=== PATIENT | male | born 1935 | race Caucasian/White ===

== ENCOUNTER → 2016-09-26 | Day surgery (SDC) | payer MEDICARE, OTHER ==
[~2016-09-26] VITALS: Ht 175.3 cm; Wt 101.9 kg
[~2016-09-26] MED LIST: ALEVE220 M1; CALCIUM CARBONATE; COLON HERBAL C1 EACH PO; COREG 3.1253.125 MG PO; CPAP INH; EDTA PO; FLAGYL500 MG PO; FLEXERIL10 MG PO; FLOMAX0.4 MG PO; FLORASTOR250 MG PO; GABAPENTIN300 MG PO; HEMP SL; HEMP TOP; KEFLEX250 MG PO; LASIX20 M1 PO; MULTI VITAMIN1 EACH PO; NORCO 5-325 MG1 TAB PO; OXYGEN M-15 INH; OXYGEN NOSE; PERCOCET 5-3251 EACH; PERCOCET 5-3251 EACH PO; PRAVACHOL20 MG PO; SHARK CARTILAG500 MG PO; TRAMADOL HCL50 MG; TYLENOL325 MG PO; VANCOCIN HCL125 MG PO; XARELTO20 MG PO; ZESTRIL2.5 MG PO; [UNRECOGNIZED DRUG - OTHER] PO
--- NOTE | ~2016-09-26 | OR ---
PATIENT'S NAME: CELESTINE RICKS [facility] AGE: 80 Y [address] ROOM: [place] [address] LOCATION: [facility] ADMIT DATE: 09/26/2016 OR/Procedure Report DISCHARGE DATE: FAMILY PHYSICIAN: Cedrick Mosley MD ATTENDING PHYSICIAN: Eren Victor SURGEON: Eren Victor MD DECKHAND CRAB BOAT: DATE OF PROCEDURE: 09/26/2016 PREOPERATIVE DIAGNOSES: 1. Gross hematuria. 2. Abnormal cystoscopy. 3. Renal cysts by CT scan and felt to be simple cysts by followup ultrasound. 4. History of nephrolithiasis. 5. Benign prostatic hypertrophy, status post laser transurethral resection. POSTOPERATIVE DIAGNOSES: 1. Gross hematuria. 2. Abnormal cystoscopy. 3. Renal cysts by CT scan and felt to be simple cysts by followup ultrasound. 4. History of nephrolithiasis. 5. Benign prostatic hypertrophy, status post laser transurethral resection, with pathology pending. PROCEDURE: 1. Cystoscopy and retrograde. 2. Bladder biopsies. ANESTHESIA: Sedation. INDICATION: This is an 80-year-old gentleman with the above-noted diagnoses. He had had gross hematuria. He thought it might have been from riding around and bouncing on his new lawnmower. He had had a CT scan last March. He had "indeterminate lesions in bilateral kidneys." They were felt to likely represent cysts. An ultrasound followup was recommended, he did not get that done. When I saw him recently with gross hematuria, I recommended that. The ultrasound confirmed that these are likely simple cysts. He has had a prior TUR in [place]. At the time of his cystoscopy, he had some tissue that appeared inflammatory, but with his gross hematuria, it merits biopsy. Interestingly, as we will see, he has been on antibiotics for a recent dermatology procedure, and his bladder looks better today than it did when we scoped him approximately 2 weeks ago. PATIENT'S NAME: CELESTINE RICKS [facility] AGE: 80 Y [address] ROOM: [place] [address] LOCATION: [facility] [place] ADMIT DATE: 09/26/2016 OR/Procedure Report DISCHARGE DATE: FAMILY PHYSICIAN: Cedrick Mosley MD ATTENDING PHYSICIAN: Eren Victor PROCEDURE: Having obtained his informed consent, the patient was taken to the cystoscopy suite. He was prepped and draped sterilely and in lithotomy position. IV sedation was administered. A 21-Uzbek cystoscope was assembled and guided into the urethra. The course of the urethra was unremarkable back to prostatic urethra. He has had the prior TUR as noted above. He still has the tissue as noted; however, it seems less pronounced than it did when we scoped on September 14. Again, he has been on the antibiotics. 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 He has some more papillary-appearing lesions next to them, they are of the same size. I see no obvious urothelial carcinoma. Both orifices were effluxing clear urine. Bladder examination was confirmed with a 70-degree lens. Preliminary survey was then undertaken. He has hardware noted. He has a phlebolith in the right hemipelvis. Preliminary survey was otherwise unremarkable. Contrast was instilled bilaterally. The ureters were pristine and delicate. Interestingly, if we did not have the CT scan and an ultrasound, we would worry about a mass effect in his upper tracts. It is more pronounced on the left. It was difficult to get the upper pole calyx to fill out. However, there was no evidence of obstruction nor any filling defects. These findings are consistent with his CT scan and ultrasound which did not reveal any new solid masses. These cysts are big enough to deform his collecting system. The biopsy forceps were placed. Nurse Practitioner Physician Assistant biopsies were taken from the bladder neck and right trigone. Those were sent to Pathology. The Bugbee was then used to cauterize the biopsy sites. The bladder was drained. We had good hemostasis. The case was concluded. The patient tolerated the procedure well. Blood loss was minimal. The above- noted specimens were sent. The patient returned to the outpatient recovery awake, in stable condition. EREN VICTOR MD [facility]/derekl /[id number] CC: Cedrick Mosley MD d: 09/26/162051 t: 06/20/17 1024, OPERATIVE SUMMARY
[2016-09-26 11:36] LABS: BASOPHIL % 0.3 %; EOSINOPHIL # 0.1 K/uL (0.0-0.5); EOSINOPHIL % 1.2 %; HEMATOCRIT 49.8 % (33.0-50.0); HEMOGLOBIN 16.6 g/dL (11.0-16.0); IMMATURE GRANULOCYTE % 0.3 %; LYMPHOCYTE # 1.1 K/uL (0.8-4.0); MCH 33.3 pg (27.0-34.0); MCHC 33.3 gm/dL (32.0-36.5); MCV 99.8 fl (83.0-98.0); MONOCYTE # 1.1 K/uL (0.0-1.0); MONOCYTE % 12.4 %; MPV 11.7 fl (9.4-12.4); NEUTROPHIL # (ANC) 6.6 K/uL (1.4-9.0); NEUTROPHIL % 73.8 %; NRBC % 0 /100WBC (0-0.00); PLATELET COUNT 131 K/uL (150-450); RBC 4.99 M/uL (3.50-5.50); RDW-CV 15.4 % (11.9-14.6); WBC 8.9 K/uL (4.0-11.0)
[2016-09-26 11:58] LABS: ALBUMIN 3.5 gm/dL (3.5-5.0); CALCIUM 9.6 mg/dL (8.5-10.5); CREATININE 1.5 mg/dL (0.6-1.3); TOTAL BILIRUBIN 0.7 mg/dL (0.0-1.5); TOTAL PROTEIN 7.4 g/dL (6.0-8.4)
== END ==
LOC: GPOC 09-21 13:00 → GSDC 10:56
PROVIDERS: Urology
PROC: 0TBB8ZX Excision of Bladder, Via Natural or Artificial Opening Endoscopic, Diagnostic (ICD-10-PCS; principal; 2016-09-26)
PROC: BT14YZZ Fluoroscopy of Kidneys, Ureters and Bladder using Other Contrast (ICD-10-PCS; 2016-09-26)
DX: N30.21 Other chronic cystitis with hematuria (principal); N40.0 Benign prostatic hyperplasia without lower urinary tract symptoms; Z87.442 Personal history of urinary calculi; I10 Essential (primary) hypertension; I48.91 Unspecified atrial fibrillation; M19.90 Unspecified osteoarthritis, unspecified site; I25.2 Old myocardial infarction; I25.10 Atherosclerotic heart disease of native coronary artery without angina pectoris; Z98.890 Other specified postprocedural states; Z79.899 Other long term (current) drug therapy
CPT/HCPCS: J1956; J2001; J7120